=== PATIENT | male | born 1985 | race Caucasian/White ===

== ENCOUNTER 2022-11-10 21:45 | Inpatient (IN) | payer BC, SELFPAY ==
[2022-11-10] VITALS (12 sets, daily range): BP systolic 118–134; BP diastolic 73–83; PULSE 66–90; RESP 16–18; TEMP 36.1; O2SAT 97–100; BMI 29.2
[2022-11-10 22:30] LABS: Basophils Percent Auto 0.1 % (0.0-3.0); Eosinophils Percent Auto 0.3 % (0.0-7.0); Hematocrit 46.1 % (37.0-53.0); Hemoglobin* 15.4 gm/dL (13.5-17.5); Immature Granulocytes Pct Auto 1.4 %; Lymphocytes Percent Auto 8.7 % (20-44); Mean Corpuscular HGB Conc 33 gm/dL (32-36); Mean Corpuscular Hemoglobin 29 pg (26-34); Mean Corpuscular Volume 88 fL (80-100); Monocytes Percent Auto 4.3 % (0.0-11.0); Neutrophils Percent Auto 85.2 % (42.0-72.0); Platelet Count* 300 K/uL (140-440); RDW Coefficient of Variation % 12.6 % (11.5-15.5); Red Blood Count 5.25 m/uL (4.30-5.90); White Blood Count* 15.47 K/uL (4.50-11.00)
[2022-11-10] MEDS: 0.9 % SODIUM CHLORIDE 1000 ml 1,000 ML IV (22:31)
[2022-11-10 22:32] LABS: Slide Review Reflex No
[2022-11-10 22:35] LABS: Albumin* 4.1 g/dL (3.3-5.0); Chloride* 105 mmol/L (96-114)
[2022-11-10 22:36] LABS: Potassium* 3.5 mmol/L (3.6-5.1); Sodium* 138 mmol/L (135-149)
[2022-11-10 22:38] LABS: Bilirubin Direct* 0.5 mg/dL (0.0-0.5); Bilirubin Total* 1.1 mg/dL (0.1-1.5); Creatinine* 1.2 mg/dL (0.5-1.5); Est. Creatinine Clearance* 92.51; Estimated Glomerular Filt Rate 80 ml/min
[2022-11-10 22:39] LABS: Alanine Aminotransferase* 246 U/L (4-50); Alkaline Phosphatase* 86 U/L (40-150); Aspartate Amino Transferase* 317 U/L (12-35); Blood Urea Nitrogen* 27 mg/dL (5-24); Calcium* 8.6 mg/dL (8.4-10.6); Carbon Dioxide* 28 mmol/L (20-32); Glucose* 162 mg/dL (60-115); Total Protein* 6.8 g/dL (6.0-8.3)
[2022-11-10 22:43] LABS: C Reactive Protein* < 0.5 mg/dL (0.5-1.0); Ethanol* < 0.01 % (0.01-0.03)
--- NOTE | 2022-11-10 22:47 | CRLHL7_ITS ---
For Patients: As a result of the Century Cures Act, medical imaging exams and procedure reports are released immediately into your electronic medical record. You may view this report before your referring provider. If you have questions, please contact your health care provider. INDICATION: Epigastric pain TECHNIQUE: CT abdomen and pelvis acquired with 96 cc Isovue 370 IV contrast. COMPARISON: None. FINDINGS: Lower chest: Subsegmental atelectasis. ABDOMEN: Liver: Normal enhancement. No focal suspicious hepatic lesions. Gallbladder and biliary: Mild gallbladder wall thickening likely reactive. Normal caliber bile ducts. Spleen: Normal size and enhancement. Pancreas: Pancreatic edema with associated peripancreatic inflammatory stranding. No ductal dilatation or areas of parenchymal nonenhancement. Adrenal glands: Normal adrenal glands. Kidneys and ureters: Normal enhancement. No radio-opaque calculi. No hydroureteronephrosis. GI tract: The stomach is fluid-filled. Normal caliber small and large bowel loops. Normal appendix. Vascular structures: Patent abdominal aorta and side branches. Patent portosplenic confluence, portal veins, and hepatic veins. Lymph nodes: No lymphadenopathy in the abdomen or pelvis by size criteria. Peritoneum: Free fluid tracking along the pericolic gutters. No acute pancreatic fluid collections. No free air or focal drainable fluid collection. Small amount of free fluid layering dependently within the pelvis. PELVIS: Genitourinary system: Normal urinary bladder. Mild heterogeneous enhancement of the prostate. SKELETAL STRUCTURES AND SOFT TISSUES: No suspicious lytic or blastic lesions. IMPRESSION: 1. Acute uncomplicated pancreatitis. No acute peripancreatic collections or areas of parenchymal non enhancement. 2. Mild heterogeneity of the prostate, indeterminate, however may be secondary to reactive response from adjacent free fluid. 3. Fluid-filled stomach and proximal duodenum. Recommend correlation for symptoms of clinical outlet obstruction potentially from edema or focal ileus. Please note that all CT scans at this facility use dose modulation, iterative reconstruction, and/or weight-based dosing when appropriate to reduce radiation dose to as low as reasonably achievable. Dictated by Alejo Vickers MD @ 11/10/2022 11:41:08 PM (Electronically Signed)
[2022-11-10 22:50] LABS: Troponin I* 0.01 ng/mL (0.01-0.04)
[2022-11-10 22:51] LABS: NT Pro B Type NatriureticPept* < 20 pg/mL
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
[2022-11-10 23:28] LABS: Lipase* 28310 U/L (23-300)
[2022-11-10] MEDS: KETOROLAC 30 MG/ML inj IVP (23:37)
[2022-11-10 23:51] LABS: Lactate Dehydrogenase* 566 U/L (120-246)
[2022-11-11] VITALS (12 sets, daily range): BP systolic 102–123; BP diastolic 71–80; PULSE 78–98; RESP 14–20; TEMP 36.7–37.7; O2SAT 94–100; BMI 30.5
[2022-11-11] MEDS: HYDROmorphone 0.5 mg/0.5 ml inj 1 MG IVP
[2022-11-11 00:36] LABS: SARS PCR* Negative SARS-CoV-2 (Negative)
[2022-11-11 00:36] LABS: Cholesterol* 162 mg/dL (90-199); HDL Cholesterol* 65 mg/dL (>=40); LDL Cholesterol Calculated 88 mg/dL (<100); Triglycerides* 47 mg/dL (40-149)
--- NOTE | 2022-11-11 01:06 | P.IMCN_ITS ---
Date of Consult Consult date: 11/10/22 Primary Care Provider: Not a Local Provider Consult Narrative Narrative: [facility] ADMISSION SUPPORT NOTE eHospitalist was contacted by Dr. Knox with request of admission support. Chief complaint: Epigastric pain HPI: The patient reports that around 7 PM he started to have an upset stomach in the epigastric region that gradually became severe. Associated with vomiting. In the ED he was diagnosed with pancreatitis. Review of systems other than mentioned above is negative. Home Medications: None Pertinent Medical History: ankle surgery Pertinent Social History: smokes 2 cigarettes/day for the past 7 years, denies drugs of abuse, denies alcohol use [facility] Surgical History (Updated 11/11/22 @ 01:12 by Valeria Abdul RN) History of ankle surgery ?Z98.890 - Other specified postprocedural states (ICD-10) Social History Highest level of school completed/degree received: high school graduate Smoking Status: Current every day smoker What tobacco products do you use: cigarettes Years smoked: 5 Do you use any of these nicotine containing products: None Second hand tobacco smoke exposure: No How often do you have a drink containing alcohol: never How often do you have six or more drinks on one occasion: Never AUDIT-C Alcohol total score: 0 Non-prescribed substance use: denies use service: No Meds Home Medications and Allergies Home Medications Medication Instructions Recorded Confirmed Type No Known Home Medications 11/10/22 11/10/22 History Allergies Allergy/AdvReac Type Severity Reaction Status Date / Time Penicillins Allergy Intermediate Rash Verified 11/10/22 23:23 Exam Narrative: Exam Narrative: Exam (performed via interactive video with assistance of bedside nurse): General: Drowsy however the patient had just received narcotics prior to my evaluation, cooperative, no acute distress HEENT: Oral mucosa pink and moist without erythema Lungs: Clear to auscultation bilaterally without crackle or wheeze CV: Regular rate and rhythm without loud murmur rub or gallop Abd: Does exhibit signs of pain with palpation in right upper quadrant and epigastric region done by bedside nurse, voluntary guarding Ext: No pitting edema noted Skin: No rashes, bruises or lesions appreciated on gross visualization of exposed skin Neuro: Drowsy, oriented x 3. CN III -VII, XI, XII grossly intact, moves all extremities without any significant focal deficit appreciated by nurse Const: Vital Signs, click to edit/add: Vital Signs - 24 hr 11/10/22 21:52 11/10/22 22:09 11/10/22 22:11 Temperature 97.0 F L Pulse Rate 80 Pulse Rate [Pulse Oximeter] 66 81 Respiratory Rate 18 16 Blood Pressure Blood Pressure [Le ft Upper Arm] 134/82 133/77 Pulse Oximetry 100 97 97 Oxygen Delivery Me thod Room Air Room Air 11/10/22 22:15 11/10/22 22:30 11/10/22 22:32 Temperature Pulse Rate 68 87 87 Pulse Rate [Pulse Oximeter] Respiratory Rate Blood Pressure 128/73 Blood Pressure [Le ft Upper Arm] Pulse Oximetry 98 100 100 Oxygen Delivery Me thod 11/10/22 22:33 11/10/22 22:45 11/10/22 23:00 Temperature Pulse Rate 90 77 81 Pulse Rate [Pulse Oximeter] Respiratory Rate Blood Pressure Blood Pressure [Le ft Upper Arm] Pulse Oximetry 100 100 100 Oxygen Delivery Me thod 11/10/22 23:02 11/10/22 23:03 11/10/22 23:32 Temperature Pulse Rate 78 82 87 Pulse Rate [Pulse Oximeter] Respiratory Rate Blood Pressure 118/75 129/83 Blood Pressure [Le ft Upper Arm] Pulse Oximetry 100 99 98 Oxygen Delivery Me thod 11/11/22 00:02 11/11/22 00:02 11/11/22 00:02 Temperature Pulse Rate 90 92 Pulse Rate [Pulse Oximeter] Respiratory Rate Blood Pressure 123/75 123/75 123/75 Blood Pressure [Le ft Upper Arm] Pulse Oximetry 100 98 Oxygen Delivery Me thod 11/11/22 00:02 11/11/22 00:21 11/11/22 00:30 Temperature Pulse Rate 98 94 98 Pulse Rate [Pulse Oximeter] Respiratory Rate Blood Pressure 123/75 Blood Pressure [Le ft Upper Arm] Pulse Oximetry 99 99 97 Oxygen Delivery Me thod Room Air 11/11/22 00:32 11/11/22 00:45 Temperature Pulse Rate 94 95 Pulse Rate [Pulse Oximeter] Respiratory Rate Blood Pressure 119/80 Blood Pressure [Le ft Upper Arm] Pulse Oximetry 97 98 Oxygen Delivery Me thod Labs Labs: Short CBC 11/10/22 Range/Units 22:21 WBC 15.47 H (4.50-11.00) K/uL Hgb 15.4 (13.5-17.5) gm/dL Hct 46.1 (37.0-53.0) % Plt Count 300 (140-440) K/uL BMP 11/10/22 22:03 Sodium 138 Potassium 3.5 L Chloride 105 Carbon Dioxide 28 BUN 27 H Creatinine 1.2 Glucose 162 H Calcium 8.6 Cardiac Enzymes 11/10/22 Range/Units 22:03 Troponin I 0.01 (0.01-0.04) ng/mL Liver Function 11/10/22 Range/Units 22:03 Total Bilirubin 1.1 (0.1-1.5) mg/dL Direct Bilirubin 0.5 (0.0-0.5) mg/dL AST 317 H (12-35) U/L ALT 246 H (4-50) U/L Alkaline Phosphatase 86 (40-150) U/L Albumin 4.1 (3.3-5.0) g/dL Assessment and Plan Assessment and plan (1) Acute pancreatitis: Status: Acute Plan Pertinent Recent lab/CT scan of abdomen pelvis: Reviewed see EMR for details Assessment and Plan: 1. Acute pancreatitis-etiology unclear. May be related to gallstone disease. Consider ultrasound of abdomen to evaluate for gallstones. Could be idiopathic. Supportive care. Continue IV fluids and pain medications. 2. Smoking habituation-nicotine patch 3. Leukocytosis-no signs or symptoms of active infection. Likely secondary to stress response. Continue to monitor 4. DVT prophylaxis-Lovenox 5. CODE STATUS full code discussed with patient Chart review was performed as well as evaluation of the patient via video. Thank you for involving ehospitalist. Please contact [phone] if further assistance is needed.
[2022-11-11] MEDS: 0.9 % SODIUM CHLORIDE 1000 ml 1,000 ML 150 ML IV ×3 (05:47→21:32)
--- NOTE | 2022-11-11 06:35 | PC.NURSE ---
pt arrived around 0100 to unit, states pain 2/10 throughout shift, pt able to sleep throughout night after zoraida assessment. pt remained NPO, pt still needs ua.
[2022-11-11 06:46] LABS: Basophils Percent Auto 0.1 % (0.0-3.0); Eosinophils Percent Auto 1.5 % (0.0-7.0); Hematocrit 46.4 % (37.0-53.0); Hemoglobin* 15.4 gm/dL (13.5-17.5); Immature Granulocytes Pct Auto 0.6 %; Lymphocytes Percent Auto 3.4 % (20-44); Mean Corpuscular HGB Conc 33 gm/dL (32-36); Mean Corpuscular Hemoglobin 29 pg (26-34); Mean Corpuscular Volume 88 fL (80-100); Neutrophils Percent Auto 90.4 % (42.0-72.0); Platelet Count* 261 K/uL (140-440); RDW Coefficient of Variation % 12.9 % (11.5-15.5); Red Blood Count 5.25 m/uL (4.30-5.90); White Blood Count* 12.38 K/uL (4.50-11.00)
[2022-11-11 07:07] LABS: Albumin* 3.7 g/dL (3.3-5.0); Chloride* 104 mmol/L (96-114); Potassium* 4.7 mmol/L (3.6-5.1); Sodium* 138 mmol/L (135-149)
[2022-11-11 07:09] LABS: Creatinine* 1.1 mg/dL (0.5-1.5); Est. Creatinine Clearance* 100.92; Estimated Glomerular Filt Rate 89 ml/min
[2022-11-11 07:10] LABS: Alkaline Phosphatase* 80 U/L (40-150); Aspartate Amino Transferase* 292 U/L (12-35); Bilirubin Total* 1.6 mg/dL (0.1-1.5); Blood Urea Nitrogen* 22 mg/dL (5-24); Carbon Dioxide* 31 mmol/L (20-32); Slide Review Reflex No; Total Protein* 6.1 g/dL (6.0-8.3)
[2022-11-11 07:11] LABS: Alanine Aminotransferase* 337 U/L (4-50); Calcium* 8.5 mg/dL (8.4-10.6); Glucose* 107 mg/dL (60-115)
[2022-11-11 07:40] LABS: Lipase* 7782 U/L (23-300)
--- NOTE | 2022-11-11 07:58 | CRLHL7_ITS ---
For Patients: As a result of the Cures Act, medical imaging exams and procedure reports are released immediately into your electronic medical record. You may view this report before your referring provider. If you have questions, please contact your health care provider. INDICATION: Gallstone pancreatitis. Follow-up. TECHNIQUE: Right upper quadrant ultrasound. COMPARISON: Correlation is made with an abdominal pelvic CT November 10, 2022. FINDINGS: The included visualized pancreas is hypoechoic and this may reflect changes from pancreatitis. Please see the recent CT. The liver is negative for masses. No intrahepatic biliary ductal dilatation. The extrahepatic common bile duct is 6 mm. The gallbladder is filled with stones. There is a wall echo shadow sign. Given that the patient is medicated, a true sonographic Mayberry`s sign cannot be commented upon. Minimal pericholecystic fluid. No hydronephrosis of the right kidney which measures 10.5 x 5.2 x 5.6 cm. The included visualized abdominal aorta is normal, proximally measuring 2.2 cm in AP dimension. IMPRESSION: 1. Cholelithiasis. Wall echo shadow sign. 2. Hypoechoic pancreas likely related to pancreatitis. 3. Minimal pericholecystic fluid. 4. These findings would support a diagnosis of gallstone pancreatitis. Dictated by Anderson Manning MD @ 11/11/2022 11:46:47 AM (Electronically Signed)
[2022-11-11 08:10] LABS: Appearance Urine Clear (Clear); Bilirubin Urine 1+ (Negative); Blood Urine Negative (Negative); Color Urine Orange (Yellow); Glucose Urine Negative (Negative); Ketones Urine Negative (Negative); Leukocyte Esterase Urine Negative (Negative); Nitrite Urine Negative (Negative); Protein Urine Negative (Negative); pH Urine 6.5 (5.0-8.5)
[2022-11-11 08:14] LABS: RBC Urine 0-2 (0-2); Squamous Epithelial Cell Urine Few (None-Few)
--- NOTE | 2022-11-11 08:39 | PM.IMHP1 ---
Hospitalist- H&P: HPI History of Present Illness Date Seen: 11/11/22 Chief complaint: Chest Pain Narrative: ADMISSION HISTORY AND PHYSICAL - HOSPITALIST Chief Complaint: Abdominal pain HPI: 37-year-old without any significant medical history in tobacco use [place] distant methamphetamine addiction presents with acute onset of mid epigastric pain. He arrived at our emergency room last evening after an acute onset at about 7:00 p.m. on 11/10/2022. He states that it felt similar to a pain he had had about a year ago but that pain was much less intense and he was able to manage at home. However yesterday's pain was much more intense, causing nausea and vomiting. No fever. He felt fine up until the onset of the pain. There has been no diarrhea. No sick contacts. He had worked normal hours at his job yesterday. ER COURSE: IV antiemetics, pain medicine. Labs CT abdomen pelvis. Acute pancreatitis identified CODE STATUS: FULL CODE EMERGENCY CONTACT PLAN: His father is bedside, Miguel, at [phone] I've updated the PFSH, medications and allergies in the [facility] tabs. INVESTIGATIONS: LABS/MICRO/ECG/IMAGING Afebrile since admission Home blood pressure 117/72 Pulse 80 Respiratory rate 14 Pulse ox 99% on room air 102 kilos CBC upon arrival to the emergency room 15.5, 12.4 this morning Hemoglobin stable, unremarkable. Platelets stable, unremarkable. Basic chemistries are unremarkable LFTs shows a bump in his total bilirubin from 1.1-1.6 AST and ALT are still elevated into the 100s Alk-phos is normal CRP has gone from 0.5-2.1 overnight Lipase started at 28,300 and is down to 7700 this morning Urine shows 1+ bilirubin, 4+ uro bili gin Alcohol undetectable, no tox screen done SARS-CoV-[address] Abdomen and Pelvix yesterday in ED 1. Acute uncomplicated pancreatitis. No acute peripancreatic collections or areas of parenchymal non enhancement. 2. Mild heterogeneity of the prostate, indeterminate, however may be secondary to reactive response from adjacent free fluid. 3. Fluid-filled stomach and proximal duodenum. Recommend correlation for symptoms of clinical outlet obstruction potentially from edema or focal ileus. REVIEW OF SYSTEMS: 12-point ROS completed with patient and negative unless otherwise stated in HPI or below. PHYSICAL EXAM: CONSTITUTIONAL: groggy; tired. can tell me his history. non-toxic. VITAL SIGNS: see record. HEENT: Normocephalic, atraumatic. PERRL, EOMI, conjunctivae pink, no scleral icterus. Ears and nose externally normal. Pharynx normal. NECK: No JVD. No carotid bruit, no thyromegaly, no adenopathy. CHEST: Clear to auscultation bilaterally HEART: S1 and S2 normal. No harsh murmurs. Edema MUSCULOSKELETAL: No gross joint deformity or swelling. ABDOMEN: tender across the mid epigastrum. good bowel sounds. NEURO: Cranial nerves intact. Grossly intact. No asymmetric findings. SKIN: No rashes, petechiae, concerning changes PSYCHIATRIC: Euthymic. ADMIT TO MEDSURG: FLOOR CARE DVT: Lovenox GI: PPI Time spent: 70 minutes examining patient, conferring with family and patient, care staff, developing care plan [facility] Medical History (Updated 11/11/22 @ 09:33 by Kassidy Paez MD) Methamphetamine abuse, episodic ?F15.10 - Other stimulant abuse, uncomplicated (ICD-10) Tobacco use disorder ?F17.200 - Nicotine dependence, unspecified, uncomplicated (ICD-10) Surgical History (Updated 11/11/22 @ 01:12 by Valeria Abdul RN) History of ankle surgery ?Z98.890 - Other specified postprocedural states (ICD-10) Social History Highest level of school completed/degree received: high school graduate Smoking Status: Current every day smoker What tobacco products do you use: cigarettes Years smoked: 5 Do you use any of these nicotine containing products: None Second hand tobacco smoke exposure: No How often do you have a drink containing alcohol: never How often do you have six or more drinks on one occasion: Never AUDIT-C Alcohol total score: 0 Non-prescribed substance use: denies use service: No Meds Home Medications and Allergies Home Medications Medication Instructions Recorded Confirmed Type No Known Home Medications 11/10/22 11/10/22 History Allergies Allergy/AdvReac Type Severity Reaction Status Date / Time Penicillins Allergy Intermediate Rash Verified 11/10/22 23:23 Exam Const: Vital Signs, click to edit/add: Vital Signs - 24 hr 11/10/22 21:52 11/10/22 22:09 11/10/22 22:11 Temperature 97.0 F L Pulse Rate 80 Pulse Rate [Left B rachial] Pulse Rate [Pulse Oximeter] 66 81 Respiratory Rate 18 16 Blood Pressure Blood Pressure [Le ft Arm] Blood Pressure [Le ft Upper Arm] 134/82 133/77 Pulse Oximetry 100 97 97 [facility] 11/10/22 22:15 11/10/22 22:30 11/10/22 22:32 Temperature Pulse Rate 68 87 87 Pulse Rate [Left B rachial] Pulse Rate [Pulse Oximeter] Respiratory Rate Blood Pressure 128/73 Blood Pressure [Le ft Arm] Blood Pressure [Le ft Upper Arm] Pulse Oximetry 98 100 100 [facility] 11/10/22 22:33 11/10/22 22:45 11/10/22 23:00 Temperature Pulse Rate 90 77 81 Pulse Rate [Left B rachial] Pulse Rate [Pulse Oximeter] Respiratory Rate Blood Pressure Blood Pressure [Le ft Arm] Blood Pressure [Le ft Upper Arm] Pulse Oximetry 100 100 100 [facility] 11/10/22 23:02 11/10/22 23:03 11/10/22 23:32 Temperature Pulse Rate 78 82 87 Pulse Rate [Left B rachial] Pulse Rate [Pulse Oximeter] Respiratory Rate Blood Pressure 118/75 129/83 Blood Pressure [Le ft Arm] Blood Pressure [Le ft Upper Arm] Pulse Oximetry 100 99 98 [facility] 11/11/22 00:02 11/11/22 00:02 11/11/22 00:02 Temperature Pulse Rate 90 92 Pulse Rate [Left B rachial] Pulse Rate [Pulse Oximeter] Respiratory Rate Blood Pressure 123/75 123/75 123/75 Blood Pressure [Le ft Arm] Blood Pressure [Le ft Upper Arm] Pulse Oximetry 100 98 [facility] 11/11/22 00:02 11/11/22 00:21 11/11/22 00:30 Temperature Pulse Rate 98 94 98 Pulse Rate [Left B rachial] Pulse Rate [Pulse Oximeter] Respiratory Rate Blood Pressure 123/75 Blood Pressure [Le ft Arm] Blood Pressure [Le ft Upper Arm] Pulse Oximetry [address] [facility] Room Air 11/11/22 00:32 11/11/22 00:45 11/11/22 01:24 Temperature 98.1 F Pulse Rate 94 95 Pulse Rate [Left B rachial] 95 Pulse Rate [Pulse Oximeter] Respiratory Rate 16 Blood Pressure 119/80 Blood Pressure [Le ft Arm] 105/75 Blood Pressure [Le ft Upper Arm] Pulse Oximetry 97 98 98 Oxygen Delivery Me thod Room Air 11/11/22 05:59 11/11/22 07:00 Temperature 98.3 F 98.6 F Pulse Rate Pulse Rate [Left B rachial] 78 80 Pulse Rate [Pulse Oximeter] Respiratory Rate 16 14 Blood Pressure Blood Pressure [Le ft Arm] 102/79 117/72 Blood Pressure [Le ft Upper Arm] Pulse Oximetry 99 99 Oxygen Delivery [facility] Room Air Room Air Hospitalist - H&P: Result Labs Labs: Short CBC 11/10/22 11/11/22 Range/Units 22:21 06:18 WBC 15.47 H 12.38 H (4.50-11.00) K/uL Hgb 15.4 15.4 (13.5-17.5) gm/dL Hct 46.1 46.4 (37.0-53.0) % Plt Count 300 261 (140-440) K/uL BMP 11/10/22 11/11/22 22:03 06:18 Sodium 138 138 Potassium 3.5 L 4.7 Chloride 105 104 Carbon Dioxide 28 31 BUN 27 H 22 Creatinine 1.2 1.1 Glucose 162 H 107 Calcium 8.6 8.5 Cardiac Enzymes 11/10/22 Range/Units 22:03 Troponin I 0.01 (0.01-0.04) ng/mL Liver Function 11/10/22 11/11/22 Range/Units 22:03 06:18 Total Bilirubin 1.1 1.6 H (0.1-1.5) mg/dL Direct Bilirubin 0.5 (0.0-0.5) mg/dL AST 317 H 292 H (12-35) U/L ALT 246 H 337 H (4-50) U/L Alkaline Phosphatase 86 80 (40-150) U/L Albumin 4.1 3.7 (3.3-5.0) g/dL Urine 11/11/22 Range/Units 07:50 Urine Color [place] A (Yellow) Urine Appearance Clear (Clear) Urine pH 6.5 (5.0-8.5) Ur Specific [place] 1.020 (1.000-1.030) Urine Protein Negative (Negative) Urine Glucose (UA) Negative (Negative) Assessment and Plan Assessment and plan (1) Acute gallstone pancreatitis: Problem comment: -bedside ultrasound this morning demonstrates gallbladder wall thickening with multiple gallstones. -given increased LFTs, unclear baseline, but noting increasing bilirubin I will consult General surgery to discuss timing of lap choly -WBC down minimally; CRP trending up -lipase is down trended nicely, his pain is well managed. In the short term we can try some clears this morning -primaxin (pcn allergy) started per gen surg recommendations Status: Acute (2) Tobacco use disorder: Problem comment: -noted, tobacco replacement offered -history of methamphetamine use, nothing recent per patient, tox screen pending Status: Acute (3) Methamphetamine abuse, episodic: Problem comment: -tox screen pending Status: Acute
[2022-11-11 08:44] LABS: C Reactive Protein* 2.1 mg/dL (0.5-1.0)
[2022-11-11 09:41] LABS: Barbiturate Screen Urine Negative (Negative); Benzodiazepines Screen Urine Negative (Negative); Cannabinoid Screen Urine Negative (Negative); Cocaine Screen Urine Negative (Negative); Methadone Screen Urine Negative (Negative); Oxycodone Screen Urine Negative (Negative); Phencyclidine Screen Urine Negative (Negative); Tricyclic Antidepressant Urine Negative (Negative)
[2022-11-11 09:45] LABS: Methamphetamines Screen Urine POSITIVE (Negative); Opiate Screen Urine POSITIVE (Negative)
[2022-11-11 09:46] LABS: Amphetamine Screen Urine POSITIVE (Negative)
[2022-11-11] MEDS: PANTOPRAZOLE SODIUM 40 MG INJ IVP (09:46)
--- NOTE | 2022-11-11 10:47 | P.GSCN_ITS ---
History of Present Illness Consult details Date Seen: 11/11/22 Consult date: 11/11/22 Narrative: Patient presents for severe abdominal pain. He states that the pain started out the blue yesterday while he was driving in his car. He continued to get worse, causing him to come to the emergency department. He does state that he has had pain similar to this about a year ago. At that time the pain went away on its own after 4 days and he did not come in for evaluation. He denies any association with food. He does report a decrease in appetite currently. Associated nausea and emesis with last emesis overnight. Denies any diarrhea or constipation. No fevers or chills. He has had some improvement in his pain since admission. He does have a history of substance abuse, with current tox screen positive for opioids and amphetamines. Review of Systems Status of ROS: Reports: 6 or more systems reviewed and unremarkable except as noted in History and below [facility] Medical History (Updated 11/11/22 @ 09:33 by Kassidy Paez MD) Methamphetamine abuse, episodic ?F15.10 - Other stimulant abuse, uncomplicated (ICD-10) Tobacco use disorder ?F17.200 - Nicotine dependence, unspecified, uncomplicated (ICD-10) Surgical History (Updated 11/11/22 @ 01:12 by Valeria Abdul RN) History of ankle surgery ?Z98.890 - Other specified postprocedural states (ICD-10) Social History Highest level of school completed/degree received: high school graduate Smoking Status: Current every day smoker What tobacco products do you use: cigarettes Years smoked: 5 Do you use any of these nicotine containing products: None Second hand tobacco smoke exposure: No How often do you have a drink containing alcohol: never How often do you have six or more drinks on one occasion: Never AUDIT-C Alcohol total score: 0 Non-prescribed substance use: denies use service: No Meds Home Medications and Allergies Home Medications Medication Instructions Recorded Confirmed Type No Known Home Medications 11/10/22 11/10/22 History Allergies Allergy/AdvReac Type Severity Reaction Status Date / Time Penicillins Allergy Intermediate Rash Verified 11/10/22 23:23 Exam Narrative: Exam Narrative: General: Alert and oriented, no acute distress Respiratory: Equal breath rise bilaterally, maintained on room air CV: Regular rhythm rate, well perfused Abdomen: Soft, mild distention. Tender to palpation of the epigastric, no guarding or rebound. Const: Vital Signs, click to edit/add: Vital Signs - 24 hr 11/10/22 21:52 11/10/22 22:09 11/10/22 22:11 Temperature 97.0 F L Pulse Rate 80 Pulse Rate [Left B rachial] Pulse Rate [Pulse Oximeter] 66 81 Respiratory Rate 18 16 Blood Pressure Blood Pressure [Le ft Arm] Blood Pressure [Le ft Upper Arm] 134/82 133/77 Pulse Oximetry 100 97 97 Oxygen Delivery Me od Room Air Room Air 11/10/22 22:15 11/10/22 22:30 11/10/22 22:32 Temperature Pulse Rate 68 87 87 Pulse Rate [Left B rachial] Pulse Rate [Pulse Oximeter] Respiratory Rate Blood Pressure 128/73 Blood Pressure [Le ft Arm] Blood Pressure [Le ft Upper Arm] Pulse Oximetry 98 100 100 Oxygen Delivery Me thod 11/10/22 22:33 11/10/22 22:45 11/10/22 23:00 Temperature Pulse Rate 90 77 81 Pulse Rate [Left B rachial] Pulse Rate [Pulse Oximeter] Respiratory Rate Blood Pressure Blood Pressure [Le ft Arm] Blood Pressure [Le ft Upper Arm] Pulse Oximetry 100 100 100 Oxygen Delivery Me od 11/10/22 23:02 11/10/22 23:03 11/10/22 23:32 Temperature Pulse Rate 78 82 87 Pulse Rate [Left B rachial] Pulse Rate [Pulse Oximeter] Respiratory Rate Blood Pressure 118/75 129/83 Blood Pressure [Le ft Arm] Blood Pressure [Le ft Upper Arm] Pulse Oximetry 100 99 98 Oxygen Delivery Me thod 11/11/22 00:02 11/11/22 00:02 11/11/22 00:02 Temperature Pulse Rate 90 92 Pulse Rate [Left B rachial] Pulse Rate [Pulse Oximeter] Respiratory Rate Blood Pressure 123/75 123/75 123/75 Blood Pressure [Le ft Arm] Blood Pressure [Le ft Upper Arm] Pulse Oximetry 100 98 Oxygen Delivery Me thod 11/11/22 00:02 11/11/22 00:21 11/11/22 00:30 Temperature Pulse Rate 98 94 98 Pulse Rate [Left B rachial] Pulse Rate [Pulse Oximeter] Respiratory Rate Blood Pressure 123/75 Blood Pressure [Le ft Arm] Blood Pressure [Le ft Upper Arm] Pulse Oximetry 99 99 97 Oxygen Delivery Me [facility] Room Air 11/11/22 00:32 11/11/22 00:45 11/11/22 01:24 Temperature 98.1 F Pulse Rate 94 95 Pulse Rate [Left B rachial] 95 Pulse Rate [Pulse Oximeter] Respiratory Rate 16 Blood Pressure 119/80 Blood Pressure [Le ft Arm] 105/75 Blood Pressure [Le ft Upper Arm] Pulse Oximetry 97 98 98 Oxygen Delivery [facility] Room Air 11/11/22 05:59 11/11/22 07:00 Temperature 98.3 F 98.6 F Pulse Rate Pulse Rate [Left B rachial] 78 80 Pulse Rate [Pulse Oximeter] Respiratory Rate 16 14 Blood Pressure Blood Pressure [Le ft Arm] 102/79 117/72 Blood Pressure [Le ft Upper Arm] Pulse Oximetry 99 99 [facility] Results Labs Labs: Abnormal lab results 11/10/22 11/10/22 11/10/22 Range/Units 22:03 22:21 22:22 WBC 15.47 H (4.50-11.00) K/uL Neut % (Auto) 85.2 H (42.0-72.0) % Lymph % (Auto) 8.7 L (20-44) % Neut # (Auto) 13.20 H (1.7-7.0) K/uL Lymph # (Auto) (0.90-2.90) K/uL D-Dimer Quant (PE/DVT) 0.60 H (0.00-0.50) ug/ml Potassium 3.5 L (3.6-5.1) mmol/L BUN 27 H (5-24) mg/dL Glucose 162 H (60-115) mg/dL Total Bilirubin (0.1-1.5) mg/dL AST 317 H (12-35) U/L ALT 246 H (4-50) U/L Lactate Dehydrogenase 566 H (120-246) U/L C-Reactive Protein < 0.5 L (0.5-1.0) mg/dL Lipase 14785 H (23-300) U/L Urine Color (Yellow) Urine Bilirubin (Negative) Urine Urobilinogen (0.2-1.0) Urine Opiates Screen (Negative) Ur Amphetamines Screen (Negative) U Methamphetamines Scrn (Negative) Ethyl Alcohol < 0.01 L (0.01-0.03) % POC Troponin I 0.00 L (0.01-0.04) ng/ml 11/11/22 11/11/22 Range/Units 06:18 07:50 WBC 12.38 H (4.50-11.00) K/uL Neut % (Auto) 90.4 H (42.0-72.0) % Lymph % (Auto) 3.4 L (20-44) % Neut # (Auto) 11.20 H (1.7-7.0) K/uL Lymph # (Auto) 0.40 L (0.90-2.90) K/uL D-Dimer Quant (PE/DVT) (0.00-0.50) ug/ml Potassium (3.6-5.1) mmol/L BUN (5-24) mg/dL Glucose (60-115) mg/dL Total Bilirubin 1.6 H (0.1-1.5) mg/dL AST 292 H (12-35) U/L ALT 337 H (4-50) U/L Lactate Dehydrogenase (120-246) U/L C-Reactive Protein 2.1 H (0.5-1.0) mg/dL Lipase 7782 H (23-300) U/L Urine Color [place] A (Yellow) Urine Bilirubin 1+ A (Negative) Urine Urobilinogen 4.0 A (0.2-1.0) Urine Opiates Screen POSITIVE A* (Negative) Ur Amphetamines Screen POSITIVE A* (Negative) U Methamphetamines Scrn POSITIVE A* (Negative) Ethyl Alcohol (0.01-0.03) % POC Troponin I (0.01-0.04) ng/ml Diabetes panel 11/10/22 11/11/22 Range/Units 22:03 06:18 Sodium 138 138 (135-149) mmol/L Potassium 3.5 L 4.7 (3.6-5.1) mmol/L Chloride 105 104 (96-114) mmol/L Carbon Dioxide 28 31 (20-32) mmol/L BUN 27 H 22 (5-24) mg/dL Creatinine 1.2 1.1 (0.5-1.5) mg/dL Glucose 162 H 107 (60-115) mg/dL Calcium 8.6 8.5 (8.4-10.6) mg/dL AST 317 H 292 H (12-35) U/L ALT 246 H 337 H (4-50) U/L Alkaline Phosphatase 86 80 (40-150) U/L Total Protein 6.8 6.1 (6.0-8.3) g/dL Albumin 4.1 3.7 (3.3-5.0) g/dL Triglycerides 47 Cancelled (40-149) mg/dL HDL Cholesterol 65 Cancelled (>=40) mg/dL Calcium panel 11/10/22 11/11/22 Range/Units 22:03 06:18 Calcium 8.6 8.5 (8.4-10.6) mg/dL Albumin 4.1 3.7 (3.3-5.0) g/dL Pituitary panel 11/10/22 11/11/22 Range/Units 22:03 06:18 Sodium 138 138 (135-149) mmol/L Potassium 3.5 L 4.7 (3.6-5.1) mmol/L Chloride 105 104 (96-114) mmol/L Carbon Dioxide 28 31 (20-32) mmol/L BUN 27 H 22 (5-24) mg/dL Creatinine 1.2 1.1 (0.5-1.5) mg/dL Glucose 162 H 107 (60-115) mg/dL Calcium 8.6 8.5 (8.4-10.6) mg/dL Adrenal panel 11/10/22 11/11/22 Range/Units 22:03 06:18 Sodium 138 138 (135-149) mmol/L Potassium 3.5 L 4.7 (3.6-5.1) mmol/L Chloride 105 104 (96-114) mmol/L Carbon Dioxide 28 31 (20-32) mmol/L BUN 27 H 22 (5-24) mg/dL Creatinine 1.2 1.1 (0.5-1.5) mg/dL Glucose 162 H 107 (60-115) mg/dL Calcium 8.6 8.5 (8.4-10.6) mg/dL Total Bilirubin 1.1 1.6 H (0.1-1.5) mg/dL AST 317 H 292 H (12-35) U/L ALT 246 H 337 H (4-50) U/L Alkaline Phosphatase 86 80 (40-150) U/L Total Protein 6.8 6.1 (6.0-8.3) g/dL Albumin 4.1 3.7 (3.3-5.0) g/dL All other labs normal. Imaging Abdomen CT scan report/results: report reviewed and image reviewed Abdominal ultrasound report/results: report reviewed and image reviewed Assessment and Plan Assessment and plan (1) Acute gallstone pancreatitis: Problem comment: -bedside ultrasound this morning demonstrates gallbladder wall thickening with multiple gallstones. -given increased LFTs, unclear baseline, but noting increasing bilirubin I will consult General surgery to discuss timing of lap choly -WBC down minimally; CRP trending up -lipase is down trended nicely, his pain is well managed. In the short term we can try some clears this morning -primaxin (pcn allergy) started per gen surg recommendations Status: Acute Plan Patient is a 37-year-old male, current substance abuse issues, with evidence of acute gallstone pancreatitis. His abdominal pain has dramatically improved since admission, with current lipase over 7000. Recommend continuing to trend his exam and labs. I discussed with the patient the recommendation for a laparoscopic cholecystectomy with intraoperative cholangiogram during this current hospitalization. I had a detailed conversation with the patient regarding the diagnosis of gallstone pancreatitis. We discussed the treatment options including observation with diet modification and laparoscopic cholecystectomy. We discussed the risks of surgery (including but not limited to) the risks of bleeding, infection, injury to other structures in the abdomen including bile duct injury, bile leak and conversion to an open operation. We discussed the possibility that the patient's pain not improve with surgery. We discussed the possibility of permanent post-operative diarrhea that may require medical management. Additionally, the conceivably of complications requiring additional surgery or further hospitalization were also discussed including the risks of VT, respiratory failure, stroke and blood clots. The patient voiced an understanding of our conversation, had the opportunity to ask questions, agreed to accept the risks of surgery and asked that we proceed with surgery. Anticipate surgery Tuesday versus Tuesday, pending his exam tomorrow and laboratory results. Would want the inflammation from his pancreatitis to be partially resolved prior to proceeding to the operating room. He does understand that if his labs are trending up clinical exam is worsening he may need further work up with an MRCP/ERCP. -clear liquids okay -NPO at midnight -morning LFT and lipase -anticipate surgery Tuesday versus Tuesday, laparoscopic cholecystectomy with intraoperative cholangiograms
[2022-11-11] MEDS: HYDROmorphone 0.5 mg/0.5 ml inj IVP ×3 (11:23→22:36)
--- NOTE | 2022-11-11 14:50 | PC.NURSE ---
Tolerating clear liquid diet well. Did have complaints of right upper quadrant pain 4/10 with effective relief after dilaudid administration. Patient able to pass flatus, no bowel movement today. Urinating without difficulty.
--- NOTE | 2022-11-11 17:49 | PC.NURSE ---
Pt calm, tired, and cooperative during shift. Pt slept most of shift. Pt alert and oriented x4. VSS. Pt has had no complaints of pain but has tenderness with palpitation of all abdominal quadrants. Pt independent in room.?
[2022-11-11] MEDS: SODIUM CHLORIDE 0.9 % (FLUSH) 10 ML SYRINGE 5 ML IVF (20:04)
[2022-11-12] VITALS (22 sets, daily range): BP systolic 111–126; BP diastolic 67–81; PULSE 70–91; RESP 14–18; TEMP 35.9–37.1; O2SAT 95–100
[2022-11-12] MEDS: SODIUM CHLORIDE 0.9 % (FLUSH) 10 ML SYRINGE 5 ML IVF ×2 (00:52→20:07)
[2022-11-12] MEDS: HYDROmorphone 0.5 mg/0.5 ml inj IVP ×4 (00:52→20:06)
[2022-11-12] MEDS: 0.9 % SODIUM CHLORIDE 1000 ml 1,000 ML 150 ML IV ×2 (04:11→16:51)
--- NOTE | 2022-11-12 05:48 | PC.NURSE ---
[id number]: Patient cooperative with cares. Pain controlled with PRN Dilaudid. Denies N/V. Up independently in room. NPO at 0000. Denies passing gas. BS hypoactive.
[2022-11-12 06:09] LABS: Basophils Percent Auto 0.1 % (0.0-3.0); Eosinophils Percent Auto 2.4 % (0.0-7.0); Hematocrit 46.4 % (37.0-53.0); Hemoglobin* 15.2 gm/dL (13.5-17.5); Immature Granulocytes Pct Auto 0.3 %; Lymphocytes Percent Auto 4.9 % (20-44); Mean Corpuscular HGB Conc 33 gm/dL (32-36); Mean Corpuscular Hemoglobin 29 pg (26-34); Mean Corpuscular Volume 89 fL (80-100); Neutrophils Percent Auto 86.3 % (42.0-72.0); Platelet Count* 242 K/uL (140-440); Red Blood Count 5.23 m/uL (4.30-5.90); White Blood Count* 13.35 K/uL (4.50-11.00)
[2022-11-12 06:19] LABS: Albumin* 3.5 g/dL (3.3-5.0)
[2022-11-12 06:20] LABS: Chloride* 102 mmol/L (96-114); Potassium* 4.9 mmol/L (3.6-5.1); Sodium* 135 mmol/L (135-149)
[2022-11-12 06:22] LABS: Alkaline Phosphatase* 123 U/L (40-150); Aspartate Amino Transferase* 189 U/L (12-35); Bilirubin Total* 1.9 mg/dL (0.1-1.5); Blood Urea Nitrogen* 9 mg/dL (5-24); Carbon Dioxide* 30 mmol/L (20-32); Est. Creatinine Clearance* 111.01; Estimated Glomerular Filt Rate 99 ml/min; Slide Review Reflex No; Total Protein* 6.1 g/dL (6.0-8.3)
[2022-11-12 06:23] LABS: Alanine Aminotransferase* 351 U/L (4-50); Calcium* 8.5 mg/dL (8.4-10.6); Glucose* 101 mg/dL (60-115)
[2022-11-12 06:29] LABS: Lipase* 1825 U/L (23-300)
--- NOTE | 2022-11-12 10:13 | W.ANESCHARGE ---
Anesthesia Charges Start Date/Time Anesthesia Start Date: 11/12/22 Anesthesia Start Time: 11:58 Stop Date/Time Anesthesia Stop Date: 11/12/22 Anesthesia Stop Time: 14:36
[2022-11-12] MEDS: ERTAPENEM 1 GM in 0.9 % SODIUM CHLORIDE Mini-bag 100 ML IVPB (12:25)
--- NOTE | 2022-11-12 14:34 | P.GSOP_ITS ---
Operative Note Date of procedure: 11/12/22 Pre-op diagnosis: Gallstone pancreatitis Post-op diagnosis: Gallstone pancreatitis, acute cholecystitis Type of Procedure: Laparoscopic cholecystectomy Indications: Patient is a 37-year-old male who presented to the emergency department with evidence of gallstone pancreatitis. I had a detailed conversation with the patient regarding the diagnosis of gallstone pancreatitis. We discussed the treatment options including observation with diet modification and laparoscopic cholecystectomy. We discussed the risks of surgery (including but not limited to) the risks of bleeding, infection, injury to other structures in the abdomen including bile duct injury, bile leak and conversion to an open operation. We discussed the possibility that the patient's pain not improve with surgery. We discussed the possibility of permanent post-operative diarrhea that may require medical management. Additionally, the conceivably of complications requiring additional surgery or further hospitalization were also discussed including the risks of [place], respiratory failure, stroke and blood clots. The patient voiced an understanding of our conversation, had the opportunity to ask questions, agreed to accept the risks of surgery and asked that we proceed with surgery. Procedure Description: After discussing the risks and benefits of the procedure, the patient signed informed consent.? The operative site was marked and the patient was brought to the operating room and placed on the operating table in supine position.? Care was taken to pad the patient's pressure points.?? The patient was then intubated by anesthesia.?? The operative site was then prepped and draped in the usual sterile fashion.? A time-out was then performed. Entrance to the abdomen was gained via a 5 mm Visiport in the left upper quadrant. The abdomen was insufflated and briefly surveyed for signs of injury. There was none. 11 mm umbilical port was placed as well as 2 working ports along the right costal margin. Patient was then placed in reverse Trendelenburg position with the right side up. The gallbladder had a significant amount of omental adhesions that were freed with hook cautery. The fundus was then able to be visualized, grasped and retracted cephalad. The gallbladder wall was very edematous and the gallbladder itself distended. A significant amount of edema, inflammation and omental adhesions were present at the cystic triangle. This made dissection very challenging and the decision was made not to proceed with an intraoperative cholangiogram. A significant amount of dissection was needed to free the omental adhesions from the gallbladder. A combination of blunt dis section and hook cautery was used to carefully dissect out the cystic duct and cystic artery until they could clearly be seen entering the gallbladder without any intervening structures. It was again was a very challenging portion of the procedure secondary to the associated edema and inflammation. The duodenum was very close to the operative field, the care was taken not to injure it during the dissection. The gallbladder was dissected off the cystic plate to achieve the critical view. Once this was achieved the cystic duct and artery were each clipped with 2 clips proximally and 1 clip distally and transected with the scissors. The cystic duct was dilated and the decision was made to place a looped 0 Vicryl via the endoloop to ensure complete ligation. The gallbladder was then taken off of the liver bed. And removed from the abdomen using an Endo- Catch bag. The gallbladder bed was surveyed for hemostasis. A small amount of bile which had spilled was suctioned from the abdomen. The ports were then removed under direct vision. The umbilical port fascia was closed with 0 Vicryl. The skin was closed with absorbable subcuticular suture. Instrument sponge and needle counts were correct at the end of the case. The patient was then woken and transferred to the PACU in stable condition. ? Findings: Acute cholecystitis, edema, inflammation and adhesions within the gallbladder fossa making the dissection difficult. Anesthesia: GETA Surgeon: Naila Cueva MD Estimated blood loss (mL): 15 Specimen: Gallbladder Condition: stable Disposition: floor
[2022-11-12] MEDS: ACETAMINOPHEN 325 MG TABLET 650 MG PO ×2 (18:35→22:29)
[2022-11-12] MEDS: OXYCODONE 5 MG TABLET PO ×2 (18:35→22:29)
--- NOTE | 2022-11-12 18:51 | PC.NURSE ---
Shift [id number]- Patient returns from PACU at approximately 1515. He rates pain up to 3/10, pain medication administered. Ice pack to abdomen. He is tolerating eating and drinking without issue.
--- NOTE | 2022-11-13 05:11 | PC.NURSE ---
[id number]: Patient cooperative with cares. Active ice to op site. 4 lap sites [employer]. Tolerating regular diet. Denies N/V. Passing small amount of gas. PRN Oxycodone and Tylenol administered for pain relief. Encouraged to ambulate and observed walking halls x1. Voiding.
[2022-11-13 06:30] VITALS: BP 136/80; PULSE 85; RESP 16; TEMP 36.8; O2SAT 100
[2022-11-13] MEDS: OXYCODONE 5 MG TABLET PO ×3 (06:37→18:16)
[2022-11-13 06:55] LABS: Albumin* 3.5 g/dL (3.3-5.0)
[2022-11-13 06:58] LABS: Alanine Aminotransferase* 327 U/L (4-50); Alkaline Phosphatase* 238 U/L (40-150); Aspartate Amino Transferase* 232 U/L (12-35); Bilirubin Direct* 2.3 mg/dL (0.0-0.5); Bilirubin Total* 2.9 mg/dL (0.1-1.5); Total Protein* 6.3 g/dL (6.0-8.3)
[2022-11-13 07:00] VITALS: BP 136/80; PULSE 85; PULSE 91; RESP 16; TEMP 36.8; O2SAT 100
[2022-11-13 07:42] LABS: Lipase* 15374 U/L (23-300)
[2022-11-13] MEDS: ACETAMINOPHEN 325 MG TABLET 650 MG PO ×2 (09:56→18:16)
--- NOTE | 2022-11-13 10:16 | P.DS_ITS ---
Transfer Discharge Sum: Prov Provider Time Seen by Provider: 08:38 Date Seen: 11/13/22 Date of admission: 11/12/22 08:44 Primary care physician: Not a Local Provider Discharging clinician: Tereza Bernardo Anticipated date of transfer: 11/13/22 Receiving physician/facility: [facility] DS: Diagnosis Discharge Diagnosis (1) Acute gallstone pancreatitis: Status: Acute Problem details: -bedside ultrasound demonstrates gallbladder wall thickening with multiple gallstones. -had laparoscopic cholecystectomy yesterday, and intraoperative cholangiogram was attempted, but could not be obtained. -WBC, direct bilirubin, LFTs, and lipase much more elevated this morning from yesterday. His symptoms are approximately the same. I spoke with Dr. Cueva who recommends ERCP at this time. I have attempted to transfer this patient for ERCP this morning. He is accepted at [facility] by Dr. Sharif. (2) Cholelithiasis: Status: Acute Problem details: As above (3) Tobacco use disorder: Status: Acute Problem details: -noted, tobacco replacement offered (4) Methamphetamine abuse, episodic: Status: Acute Problem details: -patient stated no recent use, however tox screen is positive for amphetamine and methamphetamine. (positive for opioids likely due to those given for pain in ER). Transfer Discharge Sum: Med Medications Active and Home Medications: Home Medications No Known Home Medications 11/10/22 [History Confirmed 11/10/22] Active Medications Acetaminophen (Acetaminophen 325 Mg Tablet) 650 mg PO Q4H PRN Last Admin: 11/13/22 09:56 Dose: 650 mg Hydromorphone HCl (Hydromorphone 0.5 Mg/0.5 Ml Inj) 0.2 - 0.5 mg IVP Q2H PRN PRN Reason: Pain Last Admin: 11/12/22 20:06 Dose: 0.5 mg Nicotine (Nicotine 14 Mg Patch) 1 patch TRANSDERMA DAILY ALEXIS Last Admin: 11/13/22 09:56 Dose: Not Given Ondansetron HCl (Ondansetron 2 Mg/Ml Inj) 4 mg IVP Q4H PRN PRN Reason: Nausea Oxycodone HCl (Oxycodone 5 Mg Tablet) 5 - 10 mg PO Q4H PRN PRN Reason: Pain Last Admin: 11/13/22 06:37 Dose: 5 mg Sodium Chloride (Sodium Chloride 0.9 % (Flush) 10 Ml Syringe) 5 ml IVF BID ALEXIS Last Admin: 11/13/22 09:59 Dose: Not Given Sodium Chloride (Sodium Chloride 0.9 % (Flush) 10 Ml Syringe) 5 ml IVF .FLUSH PRN Last Admin: 11/12/22 00:52 Dose: 5 ml Transfer Discharge Sum: Hosp Hospital Course Hospital course: Yaniv Nathan is a 37 year old male with methamphetamine use who presented for gallstone pancreatitis. He underwent cholecystectomy on 11/12/2022, but his lipase and LFTs, including direct bilirubin, nick overnight suggesting retained stones. He is in need of ERCP at this time and accepted at [facility] in transfer. Time Spent with Patient Time attestation: Total time spent providing and/or coordinating transfer services: Exam Narrative: Exam Narrative: General: No acute distress. Awake, alert, oriented. No pallor. No jaundice. Cardiovascular: Regular rate and rhythm. No murmurs, gallops, or rubs. Respiratory: Clear to auscultation bilaterally. No wheezes or crackles. Abdomen: Bowel sounds present. Soft, nondistended, tender in the epigastrium and right upper quadrant, unchanged. Extremities: No pedal edema. Const: Vital Signs, click to edit/add: Vital Signs - 24 hr 11/12/22 10:53 11/12/22 14:30 11/12/22 14:35 Temperature 98.3 F 97.4 F L Pulse Rate 86 85 Pulse Rate [Left R adial] 75 Respiratory Rate 16 16 18 Blood Pressure 117/74 113/68 Blood Pressure [Le ft Arm] 115/73 Pulse Oximetry 97 99 100 Oxygen Delivery Me thod Room Air Room Air OxyMask Oxygen Flow Rate 10 11/12/22 14:40 11/12/22 15:15 11/12/22 15:30 Temperature 96.7 F L 96.7 F L Pulse Rate 80 72 Pulse Rate [Left R adial] 76 Respiratory Rate 14 18 18 Blood Pressure 111/76 Blood Pressure [Le ft Arm] 121/73 122/78 Pulse Oximetry 99 98 Oxygen Delivery Me thod OxyMask Room Air Room Air Oxygen Flow Rate 6 11/12/22 15:45 11/12/22 16:00 11/12/22 17:00 Temperature Pulse Rate Pulse Rate [Left R adial] 72 70 89 Respiratory Rate 18 18 18 Blood Pressure Blood Pressure [Le ft Arm] 122/75 121/81 116/72 Pulse Oximetry 97 97 100 Oxygen Delivery Me thod Room Air Room Air Room Air Oxygen Flow Rate 11/12/22 16:30 11/12/22 18:00 11/12/22 19:00 Temperature 97.2 F L Pulse Rate Pulse Rate [Left R adial] 89 90 84 Respiratory Rate 18 18 18 Blood Pressure Blood Pressure [Le ft Arm] 111/78 126/74 114/77 Pulse Oximetry 100 97 99 Oxygen Delivery Me thod Room Air Room Air Room Air Oxygen Flow Rate 11/12/22 20:00 11/12/22 21:00 11/12/22 23:00 Temperature 98.6 F 98.6 F 98.6 F Pulse Rate Pulse Rate [Left R adial] 87 77 77 Respiratory Rate 16 18 18 Blood Pressure Blood Pressure [Le ft Arm] 123/77 124/73 124/73 Pulse Oximetry 99 95 95 Oxygen Delivery Me thod Room Air Room Air Room Air Oxygen Flow Rate 11/13/22 06:30 Temperature 98.3 F Pulse Rate Pulse Rate [Left R adial] 85 Respiratory Rate 16 Blood Pressure Blood Pressure [Le ft Arm] 136/80 Pulse Oximetry 100 Oxygen Delivery Me thod Room Air Oxygen Flow Rate Transfer Discharge Sum: Data Data Completed and Pending Completed studies during hospitalization: Ordering Physician: Alejo Knox M.D. Date of Service: 11/10/22 Procedure(s): CT abdomen pelvis w con Accession Number(s): [id number] cc: Provider,Not a Local ; Alejo Knox M.D.~ For Patients: As a result of the Cures Act, medical imaging exams and procedure reports are released immediately into your electronic medical record. You may view this report before your referring provider. If you have questions, please contact your health care provider. INDICATION: Epigastric pain TECHNIQUE: CT abdomen and pelvis acquired with 96 cc Isovue 370 IV contrast. COMPARISON: None. FINDINGS: Lower chest: Subsegmental atelectasis. ABDOMEN: Liver: Normal enhancement. No focal suspicious hepatic lesions. Gallbladder and biliary: Mild gallbladder wall thickening likely reactive. Normal caliber bile ducts. Spleen: Normal size and enhancement. Pancreas: Pancreatic edema with associated peripancreatic inflammatory stranding. No ductal dilatation or areas of parenchymal nonenhancement. Adrenal glands: Normal adrenal glands. Kidneys and ureters: Normal enhancement. No radio-opaque calculi. No hydroureteronephrosis. GI tract: The stomach is fluid-filled. Normal caliber small and large bowel loops. Normal appendix. Vascular structures: Patent abdominal aorta and side branches. Patent portosplenic confluence, portal veins, and hepatic veins. Lymph nodes: No lymphadenopathy in the abdomen or pelvis by size criteria. Peritoneum: Free fluid tracking along the pericolic gutters. No acute pancreatic fluid collections. No free air or focal drainable fluid collection. Small amount of free fluid layering dependently within the pelvis. PELVIS: Genitourinary system: Normal urinary bladder. Mild heterogeneous enhancement of the prostate. SKELETAL STRUCTURES AND SOFT TISSUES: No suspicious lytic or blastic lesions. IMPRESSION: 1. Acute uncomplicated pancreatitis. No acute peripancreatic collections or areas of parenchymal non enhancement. 2. Mild heterogeneity of the prostate, indeterminate, however may be secondary to reactive response from adjacent free fluid. 3. Fluid-filled stomach and proximal duodenum. Recommend correlation for symptoms of clinical outlet obstruction potentially from edema or focal ileus. Please note that all CT scans at this facility use dose modulation, iterative reconstruction, and/or weight-based dosing when appropriate to reduce radiation dose to as low as reasonably achievable. Dictated by Alejo Vickers MD @ 11/10/2022 11:41:08 PM (Electronically Signed) Ordering Physician: Kassidy Paez M.D. Date of Service: 11/11/22 Procedure(s): US abdomen limited Accession Number(s): [id number] cc: Kassidy Paez M.D.; Provider,Not a Local ~ For Patients: As a result of the 21st Century Cures Act, medical imaging exams and procedure reports are released immediately into your electronic medical record. You may view this report before your referring provider. If you have questions, please contact your health care provider. INDICATION: Gallstone pancreatitis. Follow-up. TECHNIQUE: Right upper quadrant ultrasound. COMPARISON: Correlation is made with an abdominal pelvic CT November 10, 2022. FINDINGS: The included visualized pancreas is hypoechoic and this may reflect changes from pancreatitis. Please see the recent CT. The liver is negative for masses. No intrahepatic biliary ductal dilatation. The extrahepatic common bile duct is 6 mm. The gallbladder is filled with stones. There is a wall echo shadow sign. Given that the patient is medicated, a true sonographic Mayberry`s sign cannot be commented upon. Minimal pericholecystic fluid. No hydronephrosis of the right kidney which measures 10.5 x 5.2 x 5.6 cm. The included visualized abdominal aorta is normal, proximally measuring 2.2 cm in AP dimension. IMPRESSION: 1. Cholelithiasis. Wall echo shadow sign. 2. Hypoechoic pancreas likely related to pancreatitis. 3. Minimal pericholecystic fluid. 4. These findings would support a diagnosis of gallstone pancreatitis. Dictated by Anderson Manning MD @ 11/11/2022 11:46:47 AM (Electronically Signed) 11/10/2022 9:55 p.m. EKG: Normal sinus rhythm. Normal EKG. Heart rate 65 beats per minute. Discharge Plan Discharge Disposition: Xfer Other Date of Admission: 11/12/22 08:44 Attending Provider on Discharge: Tereza Bernardo Consulting Providers: Naila Cueva Primary Care Provider: Provider,Not a Local Condition: Stable Discharge Medications: No Action No Known Home Medications Discharge Orders: Discharge Order (Routine); Ordered 11/13/22 Ordered By: Tereza Bernardo Activity Level: No Restrictions Discharge Diet: Other Diet Detail: NPO Follow Up Appointments: Provider,Not a Local [Primary Care Provider] - Forms: [employer] Info Instructions
[2022-11-13 11:00] VITALS: BP 136/81; PULSE 90; RESP 16; TEMP 37.1; O2SAT 100
--- NOTE | 2022-11-13 11:21 | W.ANESCHARGE ---
Anesthesia Charges Start Date/Time Anesthesia Start Date: 11/12/22 Anesthesia Start Time: 11:58 Stop Date/Time Anesthesia Stop Date: 11/12/22 Anesthesia Stop Time: 14:36
--- NOTE | 2022-11-13 11:22 | P.GSPN_ITS ---
Subjective Subjective Date Seen: 11/13/22 Interval history: Patient with worsening epigastric abdominal pain. He did tolerate some clears last night, has had nothing to eat or drink since midnight. He has not yet been up to move around. Pain is been controlled with pain medications. Denies any nausea or vomiting. Exam Narrative: Exam Narrative: General: Alert and oriented, no acute distress Abdomen: Incisions clean/dry/intact. Moderate distension with epigastric tenderness to palpation and some guarding. No right upper quadrant tenderness to palpation. Const: Vital Signs, click to edit/add: Vital Signs - 24 hr 11/12/22 14:30 11/12/22 14:35 11/12/22 14:40 Temperature 97.4 F L Pulse Rate 86 85 80 Pulse Rate [Left R adial] Respiratory Rate 16 18 14 Blood Pressure 117/74 113/68 111/76 Blood Pressure [Le ft Arm] Pulse Oximetry 99 100 99 [facility] O[facility] Oxygen Flow Rate 10 6 11/12/22 15:15 11/12/22 15:30 11/12/22 15:45 Temperature 96.7 F L 96.7 F L Pulse Rate 72 Pulse Rate [Left R adial] 76 72 Respiratory Rate 18 18 18 Blood Pressure Blood Pressure [Le ft Arm] 121/73 122/78 122/75 Pulse Oximetry 98 97 [facility] Room Air Oxygen Flow Rate 11/12/22 16:00 11/12/22 17:00 11/12/22 16:30 Temperature 97.2 F L Pulse Rate Pulse Rate [Left R adial] 70 89 89 Respiratory Rate 18 18 18 Blood Pressure Blood Pressure [Le ft Arm] 121/81 116/72 111/78 Pulse Oximetry 97 100 100 [facility] Room Air Oxygen Flow Rate 11/12/22 18:00 11/12/22 19:00 11/12/22 20:00 Temperature 98.6 F Pulse Rate Pulse Rate [Left R adial] 90 84 87 Respiratory Rate 18 18 16 Blood Pressure Blood Pressure [Le ft Arm] 126/74 114/77 123/77 Pulse Oximetry 97 99 99 [facility] Room Air Oxygen Flow Rate 11/12/22 21:00 11/12/22 23:00 11/13/22 06:30 Temperature 98.6 F 98.6 F 98.3 F Pulse Rate Pulse Rate [Left R adial] 77 77 85 Respiratory Rate 18 18 16 Blood Pressure Blood Pressure [Le ft Arm] 124/73 124/73 136/80 Pulse Oximetry 95 95 100 Oxygen Delivery Me thod Room Air Room Air Room Air Oxygen Flow Rate Labs/Imaging Labs Labs: Elevated liver enzymes, total bilirubin elevated at 2.9 with direct of 2.3. Lipase is also elevated at 15,000 Progress Note: A&P Assessment and plan (1) Acute gallstone pancreatitis: Problem details: -bedside ultrasound this morning demonstrates gallbladder wall thickening with multiple gallstones. -given increased LFTs, unclear baseline, but noting increasing bilirubin I will consult General surgery to discuss timing of lap choly -WBC down minimally; CRP trending up -lipase is down trended nicely, his pain is well managed. In the short term we can try some clears this morning -primaxin (pcn allergy) started per gen surg recommendations Status: Acute Assessment and Plan: Patient is postop day 1 laparoscopic cholecystectomy. I was unable to perform an intraoperative cholangiogram secondary to associated inflammation from his acute cholecystitis. Postoperatively he does have evidence on labs of choledocholithiasis and persistent blockage with gallstone pancreatitis. Recommendation for ERCP, which hospitalist is working towards organizing.
--- NOTE | 2022-11-13 12:05 | PM.IMPN1 ---
Progress Note: A&P Assessment and plan (1) Acute gallstone pancreatitis: Problem details: -bedside ultrasound demonstrates gallbladder wall thickening with multiple gallstones. -undergoing cholecystectomy with intraop cholangiogram today. Status: Acute (2) Cholelithiasis: Problem details: As above Status: Acute (3) Tobacco use disorder: Problem details: -noted, tobacco replacement offered Status: Acute (4) Methamphetamine abuse, episodic: Problem details: -patient stated no recent use, however tox screen is positive for amphetamine and methamphetamine. (positive for opioids likely due to those given for pain in ER. Status: Acute Plan VTE phophylaxis - encourage ambulation. Subjective Time Seen by Provider: 10:45 Date Seen: 11/12/22 Interval history: Yaniv feels a bit better today, but still pain in his epigastrium and a little bit over to his right upper quadrant. I saw him just prior to surgery. His father, Miguel, and his stepmother, Dk, were in the room with him. Exam Narrative: Exam Narrative: General: No acute distress. Awake, alert, oriented x3. No pallor. No jaundice. Oropharynx: Clear. Mucous membranes moist. Cardiovascular: Regular rate and rhythm. No murmurs, gallops, or rubs. Respiratory: Clear to auscultation bilaterally. No wheezes or crackles. Abdomen: Bowel sounds present. Soft, nondistended, tender in the epigastrium and right upper quadrant. Extremities: No pedal edema. Const: Vital Signs, click to edit/add: Vital Signs - 24 hr 11/12/22 14:30 11/12/22 14:35 11/12/22 14:40 Temperature 97.4 F L Pulse Rate 86 85 80 Pulse Rate [Left R adial] Respiratory Rate 16 18 14 Blood Pressure 117/74 113/68 111/76 Blood Pressure [Le ft Arm] Pulse Oximetry 99 100 99 Oxygen Delivery Me thod Room Air OxyMask OxyMask Oxygen Flow Rate 10 6 11/12/22 15:15 11/12/22 15:30 11/12/22 15:45 Temperature 96.7 F L 96.7 F L Pulse Rate 72 Pulse Rate [Left R adial] 76 72 Respiratory Rate 18 18 18 Blood Pressure Blood Pressure [Le ft Arm] 121/73 122/78 122/75 Pulse Oximetry 98 97 Oxygen Delivery Me thod Room Air Room Air Room Air Oxygen Flow Rate 11/12/22 16:00 11/12/22 17:00 11/12/22 16:30 Temperature 97.2 F L Pulse Rate Pulse Rate [Left R adial] 70 89 89 Respiratory Rate 18 18 18 Blood Pressure Blood Pressure [Le ft Arm] 121/81 116/72 111/78 Pulse Oximetry 97 100 [facility] Room Air Oxygen Flow Rate 11/12/22 18:00 11/12/22 19:00 11/12/22 20:00 Temperature 98.6 F Pulse Rate Pulse Rate [Left R adial] 90 84 87 Respiratory Rate 18 18 16 Blood Pressure Blood Pressure [Le ft Arm] 126/74 114/77 123/77 Pulse Oximetry 97 99 99 [facility] Room Air Room Air Oxygen Flow Rate 11/12/22 21:00 11/12/22 23:00 11/13/22 06:30 Temperature 98.6 F 98.6 F 98.3 F Pulse Rate Pulse Rate [Left R adial] 77 77 85 Respiratory Rate 18 18 16 Blood Pressure Blood Pressure [Le ft Arm] 124/73 124/73 136/80 Pulse Oximetry 95 95 100 Oxygen Delivery Me od Room Air Room Air Room Air Oxygen Flow Rate Labs Labs: Laboratory Results - last 24 hr 11/13/22 06:20 Total Bilirubin 2.9 H Direct Bilirubin 2.3 H AST 232 H ALT 327 H Alkaline Phosphatase 238 H Total Protein 6.3 Albumin 3.5 Lipase 43731 H
[2022-11-13] MEDS: 0.9 % SODIUM CHLORIDE 1000 ml 1,000 ML 125 ML IV ×2 (13:54→21:28)
[2022-11-13 15:00] VITALS: BP 131/89; PULSE 89; RESP 16; TEMP 37; O2SAT 100
[2022-11-13 19:00] VITALS: BP 146/86; PULSE 93; RESP 20; TEMP 37.3; O2SAT 100
--- NOTE | 2022-11-13 19:23 | PC.NURSE ---
Patient cooperative with cares.?Rates pain 5/10 see emar, PRN oxy and tylenol administered. 4 lap sites PHYLLIS.?NPO for procedure.? Denies N/V.? Passing small amount of gas. Encouraged to ambulate and observed walking halls x1.? Voiding. Pt. NPO and awaiting non-emergent transport to [facility] for ERCP. nurse to nurse given to Hien BARRETO at [facility].
[2022-11-13] MEDS: HYDROmorphone 0.5 mg/0.5 ml inj IVP (19:40)
[2022-11-13] MEDS: SODIUM CHLORIDE 0.9 % (FLUSH) 10 ML SYRINGE 5 ML IVF (19:41)
[2022-11-13 23:00] VITALS: BP 130/88; PULSE 79; RESP 18; TEMP 36.9; O2SAT 100
[2022-11-14] MEDS: HYDROmorphone 0.5 mg/0.5 ml inj IVP (01:15)
[2022-11-14] MEDS: OXYCODONE 5 MG TABLET PO (01:17)
--- NOTE | 2022-11-14 01:31 | PC.NURSE ---
Discharge note: EMS arrival at the facility at 0120. Pt complained of pain level of 5. Oxycodone 5mg and Hydromorphone 0.5mg given. Last V/S checked before transfer recorded as T 98.4, P 79, O2 100, R 18, and Bp 130/88. Denied N/V and SOB. Pt left unit with EMS at 0130.
== END 2022-11-14 01:30 | disposition short-term general hospital (02) | DRG 263 ==
LOC: ED 11-11 00:19 → MEDSURG 11-11 00:50
PROVIDERS: Family Medicine; Internal Medicine; Surgery; Admitting Provider Family Medicine; Emergency Provider Family Medicine; Visit Provider Family Medicine
PROC: 0FT44ZZ Resection of Gallbladder, Percutaneous Endoscopic Approach (ICD-10-PCS; CPT 47563; principal; 2022-11-12 11:00)
DX: K85.10 Biliary acute pancreatitis without necrosis or infection (principal); K80.00 Calculus of gallbladder with acute cholecystitis without obstruction; K82.8 Other specified diseases of gallbladder; F17.210 Nicotine dependence, cigarettes, uncomplicated; F15.10 Other stimulant abuse, uncomplicated
CPT/HCPCS: 00790; 36415; 74177; 76705; 80048; 80053; 80061; 80076; 80306; 81001; 82077; 83615; 83690; 83880; 84484; 85025; 85379; 86140; 87635; 88304; 93005; 99284; 99285; A9270; C9113; G0378; J0330; J0743; J1100; J1170; J1335; J1885; J2250; J2405; J2704; J3010; J3475; J3490; J7030; Q9967

== ENCOUNTER 2022-11-14 01:17 | Outpatient (CLI) | payer BC, SELFPAY | END 2022-11-14 01:18 | disposition home or self-care (01) | LOC: AMB 11-16 09:46 | PROVIDERS: Visit Provider Family Medicine | DX: R10.9 Unspecified abdominal pain (principal); K85.10 Biliary acute pancreatitis without necrosis or infection | CPT/HCPCS: A0425; A0428 ==